=== PATIENT | female | born 1965 | race Two or more races ===

== ENCOUNTER 2018-12-22 03:27 | Emergency (ER) | payer SELFPAY ==
[2018-12-22] MEDS ORDERED: NS 0.9% 1000 ML** 1,000 ML IV ONE ×2 (03:41→03:42)
[2018-12-22] MEDS ORDERED: Morphine 10 MG/ML VIAL (1 ml) IV PRN (03:42)
--- NOTE | 2018-12-22 03:42 | ED ---
Back Pain - HPI Summary HPI Summary: Patient is a 53 y/o F presenting to ED with complaints of upper back pain. Back pain onset a month ago. She denies discrete injury. In the past four days, pain has exacerbated. She states that she has been sleeping 1 hour every night since. No similar prior episodes reported. Slight exacerbation of pain with movement. She denies radiation of pain to arms but notes that the pain radiates to the front of her chest. No fever, chills, change in appetite is reported. Pain has been constant. Tylenol, ibuprofen, and naproxen have not provided relief in Sx. No Hx of diabetes or HTN reported. Patient states that she had c- section and appendectomy. No daily medications reported. Patient works in cleaning services. On triage, pain is rated 10/10. Home medications and allergies are reviewed. - History of Current Complaint Chief Complaint: EDBackInjuryPain Stated Complaint: BACK PAIN PER PT Hx Obtained From: Patient Onset/Duration: Lasting Weeks - 1 month, Still Present, Worse Since - 4 days ago Onset/Duration: Started Weeks Ago - 1 month, Still Present, Worse Since - 4 days ago Timing: Constant, Lasting Days - 4 days ago, Lasting Weeks - 1 month Back Pain Location: Is Discrete @ - upp bacer Pain Intensity: 10 Pain Scale Used: 0-10 Numeric Aggravating Symptom(s): Movement Alleviating Symptom(s): Nothing Associated Signs And Symptoms: Positive: Other - negative - chills, change in appetite. Negative: Fever - Allergies/Home Medications Allergies/Adverse Reactions: Allergies Allergy/AdvReac Type Severity Reaction Status Date / Time No Known Allergies Allergy Verified 12/22/18 03:28 PMH/Surg Hx/FS Hx/Imm Hx Endocrine/Hematology History: Denies: Hx Diabetes Cardiovascular History: Denies: Hx Hypertension - Surgical History Surgery Procedure, Year, and Place: appendectomy and - Immunization History Date of Tetanus Vaccine: PT STATES UNSURE Date of Influenza Vaccine: NONE Infectious Disease History: No Infectious Disease History: Denies: Traveled Outside the [place] in Last 30 Days - Family History Known Family History: Negative: Seizure Disorder - Social History Alcohol Use: None Substance Use Type: Reports: None Smoking Status (MU): Never Smoked Tobacco Review of Systems Negative: Fever, Chills Gastrointestinal: Other - negative - change in appetite Musculoskeletal: Other - positive - back pain All Other Systems Reviewed And Are Negative: Yes Physical Exam - Summary Physical Exam Summary: Appearance: Well-appearing, Obese, lying in bed comfortably Skin: Warm, dry, no rash or surface changes noted Eyes: sclera anicteric, no conjunctival pallor ENT: mucous membranes moist, pharynx appears normal Neck: Supple, nontender Respiratory: Clear to auscultation, no signs of respiratory distress Cardiovascular: Normal S1, S2. No murmurs. Normal distal pulses in tibial and radial bilaterally. Abdomen: Soft, nontender, normal active bowel sounds present Musculoskeletal: Tenderness of the upper back at both the midline and the sides ; Strength/ROM Intact Neurological: A&Ox3, awake and alert, mentation is normal, speech is fluent and appropriate Psychiatric: affect is normal, does not appear anxious or depressed Triage Information Reviewed: Yes Vital Signs On Initial Exam: Initial Vitals Temp Pulse Resp BP Pulse Ox 97.9 F 92 22 211/119 97 12/22/18 03:28 12/22/18 03:28 12/22/18 03:28 12/22/18 03:28 12/22/18 03:28 Vital Signs Reviewed: Yes Diagnostics - Vital Signs Vital Signs Temp Pulse Resp BP Pulse Ox 12/22/18 03:28 97.9 F 92 22 211/119 97 - Laboratory Result Diagrams: 12/22/18 03:53 12/22/18 03:53 Lab Statement: Any lab studies that have been ordered have been reviewed, and results considered in the medical decision making process. - Radiology CXR Radiology Interpretation Completed By: ED Physician Summary of Radiographic Findings: NO ACUTE PROCESS, PENDING OFFICIAL REPORT. THORACIC SPINE X-RAY Radiology Interpretation Completed By: ED Physician Summary of Radiographic Findings: NO ACUTE PROCESS, PENDING OFFICIAL REPORT. - EKG 0355 Cardiac Rate: NL - rate of 86 BPM EKG Rhythm: Sinus Rhythm Summary of EKG Findings: NSR at 86 BPM, P waves, QRS complex, and T waves are within normal limits, T waves and intervals are normal, no ischemic changes. This is a normal EKG, no STEMI. Back Pain Course/Dx - Course Course Of Treatment: Patient is a 53 y/o F presenting to ED with complaints of upper back pain. Back pain onset a month ago. She denies discrete injury. In the past four days, pain has exacerbated. She states that she has been sleeping 1 hour every night since. No similar prior episodes reported. Slight exacerbation of pain with movement. She denies radiation of pain to arms but notes that the pain radiates to the front of her chest. No fever, chills, change in appetite is reported. Pain has been constant. Tylenol, ibuprofen, and naproxen have not provided relief in Sx. On physical exam, patient is noted to be obese. She has tenderness of the upper back at both the midline and the sides , no rash or surface changes noted. EKG showed NSR at 86 BPM, P waves, QRS complex, and T waves are within normal limits, T waves and intervals are normal , no ischemic changes. This is a normal EKG, no STEMI. CXR and Thoracic Spine X- ray showed no acute process. Bloodwork was obtained. Abnormal values include MCH 32, sodium 125, chloride 91, BUN/creatinine ratio 22.8, glucose 443, CRP 8.5. During ED course, patient received fluids and 1 L NS. 0442 - patient's case was discussed with Dr. Duran. Dr. Duran states that the patient can be admitted, receive MRI, and worked up further. However, as the patient does not have insurance, she would prefer to be discharged and receive further care at the [facility], where she has gone to numerous previous times. - Diagnoses Provider Diagnoses: Diabetes mellitus, new onset, Thoracic spine pain, High blood pressure - Provider Notifications Discussed Care Of Patient With: Miguelina Duran Time Discussed With Above Provider: 04:42 Instructed by Provider To: Other - 0442 - patient's case was discussed with Dr. Duran. Dr. Duran states that the patient can be admitted, receive MRI, and worked up further. However, as the patient does not have insurance, she would prefer to be discharged and receive further care at the [facility], where she has gone to numerous previous times. Discharge ED - Sign-Out/Discharge Documenting (check all that apply): Patient Departure - discharge Patient Received Moderate/Deep Sedation with Procedure: No - Discharge Plan Condition: Stable Disposition: HOME Prescriptions: Lisinopril TAB* [Prinivil TAB 10 MG*] 10 mg PO DAILY #15 tab metFORMIN* [Glucophage 1000 MG TAB *] 1,000 mg PO BID #30 tab oxyCODONE/Acetamin 5/325 MG* [Percocet 5/325 TAB*] 1 tab PO Q4H PRN #15 tab MDD 4 PRN Reason: Pain - Severe Patient Education Materials: Type 2 Diabetes in Adults: New Diagnosis (ED), Hypertension (ED), Thoracic Pain (ED) Print Language: WELSH Referrals: [facility] [Outside] Additional Instructions: Your blood tests showed that you have diabetes, and your blood pressure has been high. The xrays look ok. I am not sure what is causing your back pain, but you definitely need to get a primary care provider soon who can start looking after these problems and work on the back pain. I have prescribed some medication to get you started. - Billing Disposition and Condition Condition: STABLE Disposition: Home - Attestation Statements Document Initiated by Emre: Yes Documenting Scribe: MARIANELA HAYS Provider For Whom Emre is Documenting (Include Credential): XANDER FREY MD Scribe Attestation: IMARAINELA, scribed for XANDER FREY MD on 12/22/18 at 0642. Scribe Documentation Reviewed: Yes Provider Attestation: The documentation as recorded by the MARIANELA bhandari accurately reflects the service I personally performed and the decisions made by me, XANDER FREY MD Status of Scrlisa Document: Viewed
[2018-12-22] MEDS ORDERED: Morphine 4 MG/ML VIAL (1 ml) 4 MG/ML VIAL IV ONE (03:46)
[2018-12-22 04:14] LABS: Hematocrit 40 % (35-47); Hemoglobin 14.1 g/dL (12.0-16.0); Mean Corpuscular HGB Conc 36 g/dL (31-36); Mean Corpuscular Hemoglobin 32 pg (27-31); Mean Corpuscular Volume 89 fL (80-97); Mean Platelet Volume 9.3 fL (7.4-10.4); Platelet Count 257 10^3/uL (150-450); Red Blood Count 4.43 10^6 /uL (3.70-4.87); Red Cell Distribution Width 14 % (10-15)
[2018-12-22 04:37] LABS: Albumin/Globulin Ratio 1.6 (1-3); Alkaline Phosphatase 87 U/L (34-104); BUN/Creatinine Ratio 22.8 (8-20); Blood Urea Nitrogen 18 mg/dL (6-24); CO2 Carbon Dioxide 24 mmol/L (22-32); Calcium 9.4 mg/dL (8.6-10.3); Chloride 91 mmol/L (101-111); EGFR African American 91.8 (>60); EGFR Non-African American 75.8 (>60); Globulin 2.5 g/dL (2-4); Glucose 443 mg/dL (70-100); Sodium 125 mmol/L (135-145); Total Protein 6.5 g/dL (6.4-8.9)
[2018-12-22 04:38] LABS: Troponin I 0.01 ng/mL (<0.04)
[2018-12-22 04:53] LABS: ALT 30 U/L (7-52); Anion Gap 10 mmol/L (2-11)
[2018-12-22] MEDS ORDERED: Lisinopril TAB* 10 MG PO ONE (04:56)
[2018-12-22] MEDS ORDERED: oxyCODONE/Acetamin 5/325 MG* TAB PO ONE (04:56)
[2018-12-22] MEDS ORDERED: metFORMIN* 500 MG TAB PO ONE (04:56)
[2018-12-22 04:57] LABS: ABS Basophils 0.1 10^3/ul (0-0.2); ABS Eosinophils 0.3 10^3/ul (0-0.6); ABS Lymphocytes 3.3 10^3/ul (1.0-4.8); ABS Monocytes 0.6 10^3/ul (0-0.8); ABS Neutrophils 5.7 10^3/ul (1.5-7.7); Eosinophil % 2.8 %; Lymphocyte % 32.9 %; Nucleated Red Blood Cells % 0.1
[2018-12-22 05:16] VITALS: BP 171/118
== END 2018-12-22 05:14 | disposition home or self-care (01) ==
LOC: ED 03:27
DX: E11.9 Type 2 diabetes mellitus without complications (principal); M54.6 Pain in thoracic spine; R03.0 Elevated blood-pressure reading, without diagnosis of hypertension; M51.34 Other intervertebral disc degeneration, thoracic region; Z79.84 Long term (current) use of oral hypoglycemic drugs; Z79.899 Other long term (current) drug therapy
CPT/HCPCS: 36415; 71046; 72070; 80053; 84484; 85025; 86140; 93005; 96361; 96374; 99283; A9270-GY; J2270